=== PATIENT | male | born 1970 | race Caucasian/White ===

== ENCOUNTER → 2018-02-25 13:30 | Outpatient (CLI) | payer OTHER, SELFPAY ==
--- NOTE | 2018-02-25 13:34 | CT_ITS ---
STUDY: CT ABDOMEN WITH CONTRAST REASON FOR EXAM: Male, 47 years old. Incisional hernia from laparoscopic cholecystectomy, intermittent pain RADIATION DOSAGE (If Supplied By Facility): CTDIvol = ( 22.82 ) mGy, DLP = ( 934.68 ) mGycm TECHNIQUE: Transaxial images were obtained with oral contrast only. Sagittal and coronal images were reconstructed. Individualized dose optimization techniques were used for this CT. COMPARISON: None. FINDINGS: The visualized lung bases are unremarkable. The visualized portions of the heart are within normal limits. Normal liver. There are surgical clips in the gallbladder fossa consistent with a prior cholecystectomy. Normal spleen. Normal pancreas. Normal bilateral adrenal glands. Normal right kidney. Normal left kidney. Normal visualized stomach. Normal small intestine. Normal colon. There is non-visualization of the appendix. Normal abdominal aorta. Normal inferior vena cava. Normal retroperitoneum. There is a small umbilical hernia containing fat. There are degenerative changes of the visualized lower thoracic spine. No incisional hernia was identified. CT/Abdomen WITH ORAL Cont Only IMPRESSION: Status post cholecystectomy. Small fat containing umbilical hernia. Degenerative changes of the visualized lower thoracic spine. No incisional hernia was identified. Electronically Signed: Jerrell Gavin MD at 22:52 EDT , Service support ,
== END ==
PROVIDERS: Family Provider Family Medicine; PCP Family Medicine; Visit Provider Family Medicine
DX: K43.2 Incisional hernia without obstruction or gangrene (principal)
CPT/HCPCS: 74150

== ENCOUNTER → 2018-03-03 11:29 | Outpatient (CLI) | payer OTHER, SELFPAY ==
--- NOTE | 2018-03-03 11:34 | RAD_ITS ---
STUDY: X-RAY - THORACIC SPINE REASON FOR EXAM: Male, 47 years old. Mid back pain TECHNIQUE: 3 view(s) of the thoracic spine were obtained. COMPARISON: None. FINDINGS: Normal kyphosis of the thoracic spine. There is no substantial scoliosis. There is multilevel endplate spondylosis of the thoracic vertebrae. There is multilevel disc space narrowing of the thoracic spine. The soft tissue structures are unremarkable. RAD/Thoracic Spine 3 Views IMPRESSION: Degenerative changes without acute findings Electronically Signed: Eulogio Craft DO at 13:07 EDT Tel , Service support ,
--- NOTE | 2018-03-03 11:34 | RAD_ITS ---
STUDY: X-RAY - LUMBAR SPINE REASON FOR EXAM: Male, 47 years old. Low back pain with degenerative disc disease TECHNIQUE: 5 view(s) of the lumbar spine were obtained. COMPARISON: None FINDINGS: Normal lumbar lordosis. There is no substantial scoliosis. There is a normal alignment of the vertebrae. Normal vertebral bodies and endplates. Normal disc space heights. Mild multilevel facet degenerative change. The soft tissue structures are unremarkable. RAD/L/S Spine Min 4 Views IMPRESSION: Mild multilevel facet degenerative change Electronically Signed: Eulogio Craft DO at 13:06 EDT Tel , Service support ,
[2018-03-03 14:24] LABS: Erythrocyte Sedimentation Rate 5 mm/hr (0-15)
[2018-03-03 14:37] LABS: CRP 8.01 mg/L (0.0-3.0); Rheumatoid Factor < 10.0 IU/mL (<15)
[2018-03-05 11:06] LABS: ANTINUCLEAR ANTIBODIES DIRECT Negative (Negative)
== END ==
LOC: MTLAB 11:31
PROVIDERS: Family Provider Family Medicine; PCP Family Medicine; Visit Provider Family Medicine
DX: M51.36 Other intervertebral disc degeneration, lumbar region (principal)
CPT/HCPCS: 36415; 72072; 72110; 85652; 86038; 86140; 86431

== ENCOUNTER → 2018-03-21 12:27 | Outpatient (CLI) | payer OTHER, SELFPAY ==
[2018-03-21 15:44] LABS: Absolute Lymphocyte Count 1.57 X10^3/ul (0.83-4.51); Absolute Neutrophil Count 5.6 X10^3/uL (2.0-7.7); Basophil# 0.01 X10^3/uL; Basophil% 0.1 % (0-1); Eosinophil# 0.07 X10^3/uL; Eosinophils% 0.9 % (0-5); Hematocrit 43.9 % (40-54); Hemoglobin 15.2 g/dl (13.0-16.5); Lymphocyte # 1.57 X10^3/ul (4.0); Lymphocyte % 19.8 % (19-41); Mean Corp Hgb Conc 34.6 g/gl (32-36); Mean Corpuscular Hgb 29.2 pg (27.0-32.0); Mean Corpuscular Volume 84.4 fL (80-94); Mean Platelet Vol. 9.3 fl (6.2-12.0); Monocyte# 0.62 X10^3/uL; Monocyte% 7.8 % (0-10); Neutrophil # 5.64 X10^3/uL (2.7-7.7); Neutrophil % 71.1 % (47-70); Platelet Count 231 K/mm3 (150-450); RBC Distribution Width CV 12.6 % (11.6-14.6); RBC Distribution Width SD 38.5 fl (35.1-43.9); White Blood Count 7.9 K/mm3 (4.4-11.0)
[2018-03-21 16:07] LABS: POSITIVE COUNT NO; POSITIVE DIFFERENTIAL NO; POSITIVE MORPHOLOGY NO
[2018-03-22 09:43] LABS: H. Pylori Antibody (IgG) 0.21 (0.00-0.79)
== END ==
LOC: MTLAB 12:27
PROVIDERS: Family Provider Family Medicine; PCP Family Medicine; Visit Provider Family Medicine
DX: K30 Functional dyspepsia (principal)
CPT/HCPCS: 36415; 85025; 86677

== ENCOUNTER 2018-04-19 08:10 | Day surgery (SDC) | payer OTHER, SELFPAY ==
[2018-04-19] VITALS (7 sets, daily range): BP systolic 111–143; BP diastolic 71–95; PULSE 67–78; RESP 16–18; TEMP 36.4–36.8; O2SAT 96–99; BMI 31.8
--- NOTE | 2018-04-19 | IMM_PTH ---
PATIENT: JEFFREY BALL LOC: EN U#:[id number] AGE/SX: 47/M ROOM: RE04/19/[address]: Dr. Rommel Ogden MD : 1970 BED: DIS: 04/19/2018 SPEC #: [id number] RECD: 04/20/18 12:45 STATUS: WALI PIA #: [id number] ELIZABETH: 04/19/18 00:[address]: Rommel Ogden DEPT: IMMUNOHISTOCHEMISTRY RECD BY: Bernice Villavicencio ENTERED: 04/20/18 12:45 SP TYPE: IMMUNO OTHR DR: Dr. Lior Green MD Tissues: Stomach, NOS Procedures: H Pylori (initial) PHYSICIAN & INSTITUTION [place] [address] SPECIMEN INFORMATION: Tissue Source: Antral biopsy Clinical Info: LUQ pain, GERD Specimen Number: [id number] CPT code: 76937 METHODOLOGY: Deparaffinized sections of prefer/formalin-fixed tissue or PAP/DQ stained slides are incubated with monoclonal/polyclonal antibodies/oligonucleotide probes. Localization is made via biotin free immunoperoxidase method. Appropriate controls are performed and reacted as expected. Results on target cell population are indicated in the following table: RESULTS: ANTIBODY / CLONE RESULT H Pylori (polyclonal) negative These tests were developed and their performance characteristics determined by [facility]. They may not have been cleared or approved by the U.S. Food and Drug Administration. The FDA has determined that such clearance or approval is not necessary. INTERPRETATION: Antral biopsy: Negative for Helicobacter pylori organisms. ILIANA:allyn 04/21/18
--- NOTE | 2018-04-19 | EGD_PTH ---
PATIENT: JEFFREY BALL LOC: EN U#:[id number] AGE/SX: 47/M ROOM: RE04/19/[address]: Dr. Rommel Ogden MD : 1970 BED: DIS: 04/19/2018 SPEC #: [id number] RECD: 04/19/18 13:16 STATUS: WALI PIA #: [id number] ELIZABETH: 04/19/18 00:[address]: Rommel Ogden DEPT: SURGICAL PATHOLOGY RECD BY: Ranjit Kenyon ENTERED: 04/19/18 13:27 SP TYPE: EGD BIOPSY OT DR: Dr. Lior Green MD Tissues: Gastric mucous membrane Procedures: Surgery Specimen Level IV HEADER OPERATION: EGD PRE-OP DIAGNOSIS: LUQ pain, GERD TISSUE SUBMITTED: Antral biopsy for H. pylori and path MICROSCOPIC DIAGNOSIS Antral biopsy: Mild gastritis. SJ:allyn 04/20/18 COMMENT The results of immunohistochemistry for Helicobacter pylori will be reported separately ([id number]). MICROSCOPIC DESCRIPTION Slides are reviewed. The specimen shows fragments of gastric mucosa with chronic inflammatory cell infiltrates in the lamina propria consisting of lymphocytes and plasma cells, consistent with mild chronic gastritis. GROSS DESCRIPTION Received in fixative is one container labeled with the patient's name and designated antral biopsy. The specimen consists of two irregular fragments of light avalos soft tissue that in aggregate measure 0.5 x 0.2 x 0.1 cm. The specimen is totally submitted in one cassette. / SJ:rg 04/19/18 TC:3 CPT: 68254
--- NOTE | 2018-04-19 09:31 | OP.PCM_ITS ---
Problem List (1) GERD (gastroesophageal reflux disease) Status: Acute Qualifiers: Esophagitis presence: esophagitis presence not specified Qualified Code(s) : K21.9 - Gastro-esophageal reflux disease without esophagitis (2) LUQ pain Status: Acute Report of Operation Date of Procedure: 04/19/18 Pre-Operative Diagnosis: Left upper quadrant pain and GERD despite PPI therapy Post-Operative Diagnosis: 1. Gastritis. 2. Small hiatal hernia Surgery/Procedure Performed:: EGD with biopsy Specimen's removed: Antrum biopsy Description of Procedure: The major risks and benefits associated with the procedure were explained to the patient in detail. The patient verbalized understanding and agreement with the same. The patient was then placed in the left lateral decubitus position. IV sedation was started by anesthesia. The endoscope was then advanced under direct visualization over the tongue, into the esophagus , stomach and duodenum. It was slowly withdrawn and the mucosa was carefully evaluated. Duodenal mucosal abnormalities were not visualized. Antegrade and retrograde views of the stomach were normal and did not reveal ulceration. Patient did have a small hiatal hernia. Gastric folds were normal except for some gastritis of the antrum.. A biopsy of the antrum was performed with cold forceps. The scope was then withdrawn through the GE junction and careful examination did not demonstrate any mucosal abnormalities. No evidence of Chambers's esophagus was apparent. Careful examination of the remainder of the esophagus was normal. The scope was then withdrawn from the patient and the procedure terminated. It was well tolerated and there were no immediate complications. Recommendations: I recommended the patient try a different PPI if insurance will allow. If his H. pylori comes back negative I will check a serology H pylori to rule that out.
== END 2018-04-19 10:16 | disposition home or self-care (01) ==
LOC: EN 08:11 → AC 08:11
PROVIDERS: Family Provider Family Medicine; PCP Family Medicine; Visit Provider Surgery
PROC: 0DJ08ZZ Inspection of Upper Intestinal Tract, Via Natural or Artificial Opening Endoscopic (ICD-10-PCS; CPT 43235; principal; 2018-04-19 09:10)
DX: K29.70 Gastritis, unspecified, without bleeding (principal); K44.9 Diaphragmatic hernia without obstruction or gangrene; K21.9 Gastro-esophageal reflux disease without esophagitis; R10.12 Left upper quadrant pain
CPT/HCPCS: 43239; 88305; 88342; J7120

== ENCOUNTER → 2019-12-07 09:06 | Outpatient (CLI) | payer OTHER, SELFPAY ==
--- NOTE | 2019-12-07 09:07 | RAD_ITS ---
STUDY: X-RAY - RIGHT SHOULDER REASON FOR EXAM: Increasing right shoulder pain, injury 2 years ago. TECHNIQUE: 4 view(s) of the shoulder. COMPARISON: None. FINDINGS: There is mild joint space narrowing at the superior glenohumeral articulation. There is no substantial acromioclavicular arthrosis. Normal acromion. Normal humeral head and visualized proximal humerus. There is a small focus of calcific tendinitis. Normal visualized pulmonary apex. RAD/Shoulder min 2 Views IMPRESSION: Mild glenohumeral arthrosis. Small focus of calcific tendinitis. Electronically Signed: Brayan Lopez MD at 10:42 EST Tel , Service support ,
== END ==
PROVIDERS: PCP Family Medicine; Referring Provider Orthopaedic Surgery; Visit Provider Orthopaedic Surgery
DX: M25.511 Pain in right shoulder (principal)
CPT/HCPCS: 73030

== ENCOUNTER → 2022-11-20 | Outpatient (CLI) | payer OTHER, SELFPAY ==
--- NOTE | 2022-11-20 10:30 | RAD_ITS ---
INDICATION: GROIN PAIN EXAMINATION/TECHNIQUE: X-RAY - XR Pelvis 1 or 2 Views COMPARISON: None. FINDINGS: PELVIC BONES: No displaced fracture, destructive or sclerotic lesions. Note that overlapping bowel shadows may however obscure fine detail. Sacroiliac joints are unremarkable. No widening of the pubic symphysis. HIPS: The articular structures are unremarkable. No displaced fracture seen in this frontal view. SOFT TISSUES: No soft tissue swelling or gas. RAD/Pelvis 1 or 2 Views IMPRESSION: No evidence of displaced pelvic or hip fracture. Electronically Signed: Lior Casiano MD at 16:49 EST ,
[2022-11-20 12:08] LABS: Erythrocyte Sedimentation Rate 11 mm/hr (0-20)
[2022-11-20 12:09] LABS: Absolute Lymphocyte Count 1.76 X10^3/uL (0.83-4.51); Basophil# 0.03 X10^3/uL; Basophil% 0.5 % (0-1); Eosinophils% 1.5 % (0-5); Hematocrit 47.3 % (40-54); Hemoglobin 15.9 g/dL (13.0-16.5); Lymphocyte # 1.76 X10^3/ul (0.83-4.51); Mean Corp Hgb Conc 33.6 g/dL (32-36); Mean Corpuscular Hgb 28.6 pg (27.0-32.0); Mean Corpuscular Volume 85.2 fL (80-94); Mean Platelet Vol. 8.9 fl (6.2-12.0); Monocyte# 0.65 X10^3/uL; NRBC Flagged by Analyzer 0 % (0-5); Neutrophil # 3.97 X10^3/uL (2.7-7.7); Neutrophil % 60.7 % (47-70); Platelet Count 236 K/mm3 (150-450); RBC Distribution Width CV 11.9 % (11.6-14.6); RBC Distribution Width SD 36.6 fl (35.1-43.9); Red Blood Count 5.55 M/mm3 (4.6-6.2); White Blood Count 6.5 K/mm3 (4.4-11.0)
== END | disposition home or self-care (01) ==
LOC: MTLAB 10:28
PROVIDERS: PCP Family Medicine; Referring Provider Family Medicine; Visit Provider Family Medicine
DX: R10.30 Lower abdominal pain, unspecified (principal)
CPT/HCPCS: 36415; 72170; 85025; 85652

== ENCOUNTER → 2023-11-17 | Outpatient (CLI) | payer OTHER, SELFPAY ==
--- NOTE | 2023-11-17 14:53 | CT_ITS ---
INDICATION: abdominal pain, epigastric region EXAMINATION: CT ABDOMEN WITH IV CONTRAST CT Abdomen W/ Contrast Injection TECHNIQUE: Helically acquired images were obtained of the abdomen following IV contrast. A radiation dose optimization technique was used for this scan. IV Contrast dosage and agent: 93 cc of Isovue-370 Oral contrast: None. RADIATION DOSAGE (If Supplied By Facility): CTDIvol = ( 16.92 ) mGy, DLP = ( 1003.97 ) mGycm COMPARISON: Prior study dated: 1717 FINDINGS: LOWER CHEST: Lung bases are clear. No cardiomegaly or pericardial effusion. LIVER: Mild hepatic steatosis. No focal mass. GALLBLADDER AND BILIARY TREE: Status post cholecystectomy. No intra- or extrahepatic biliary ductal dilation. PANCREAS: No focal cystic or solid mass. SPLEEN: Normal size without focal cystic or solid mass. ADRENAL GLANDS: No nodules. KIDNEYS AND URETERS: Normal renal size and position. No hydronephrosis. PERITONEUM: No ascites or free air. No other fluid collection. BOWEL: Surgical clips right lower quadrant presumably from previous appendectomy. No stomach or bowel distension. No focal inflammatory change. LYMPH NODES: No enlarged mesenteric or retroperitoneal lymph nodes. VESSELS: Aorta is non-dilated. ABDOMINAL WALL: Small umbilical hernia containing fat unchanged. BONES: No lytic or blastic abnormality. CT/Abdomen WITH IV Contrast IMPRESSION: 1. No focal acute inflammatory process. 2. Status post cholecystectomy and appendectomy. 3. Small umbilical hernia containing fat 4. Mild hepatic steatosis. Electronically Signed: Eric Yuan MD at 10:38 EST ,
== END | disposition home or self-care (01) ==
LOC: CT 14:48
PROVIDERS: PCP Family Medicine; Referring Provider Family Medicine; Visit Provider Family Medicine
DX: K43.2 Incisional hernia without obstruction or gangrene (principal)
CPT/HCPCS: 74160; Q9967

== ENCOUNTER → 2024-01-04 | Outpatient (CLI) | payer OTHER, SELFPAY ==
--- NOTE | 2024-01-04 12:57 | RAD_ITS ---
INDICATION: cough, SOB. ? Hiatal hernia EXAMINATION/TECHNIQUE: X-RAY - XR Chest 2 Views COMPARISON: No relevant prior comparison study available FINDINGS: LINES/DEVICES: None. LUNGS: No consolidation, edema or effusion. No pneumothorax. MEDIASTINUM AND CARDIOVASCULAR STRUCTURES: Cardiac silhouette not enlarged. Central airways and mediastinal contour are unremarkable. BONES AND SOFT TISSUES: Mild degenerative changes in the thoracic spine. No definite hiatal hernia is seen. RAD/Chest PA and Lateral IMPRESSION: No radiographic evidence of acute cardiopulmonary disease. Electronically Signed: Eric Yuan MD at 15:09 EST ,
== END | disposition home or self-care (01) ==
LOC: MTRAD 12:38
PROVIDERS: PCP Family Medicine; Referring Provider Family Medicine; Visit Provider Family Medicine
DX: R06.02 Shortness of breath (principal)
CPT/HCPCS: 71046

== ENCOUNTER 2024-01-11 07:33 | Day surgery (SDC) | payer OTHER, SELFPAY ==
[2024-01-11] MEDS: Lactated Ringers 1,000 ML 15 ML IV (07:53)
[2024-01-11 07:54] VITALS: BP 140/87; PULSE 81; RESP 18; TEMP 36.3; O2SAT 100; BMI 33.7
--- NOTE | 2024-01-11 08:07 | HP.PCM_ITS ---
History and Physical Date of Admission: 01/11/24 Intake Intake Visit Reasons: DISCUSS GERD / EGD Chief Complaint: discuss gerd/egd Is patient in pain?: No Allergies procaine [From Novocain] Allergy (Intermediate, Verified 12/20/23 14:00) Swelling Medications acetaminophen 325 mg capsule (Tylenol) 650 mg PO Q4H PRN pain 12/14/23 [History Confirmed 12/20/23] pantoprazole 20 mg tablet,delayed release 20 mg PO DAILY #60 tabs 12/20/23 [Rx Confirmed 12/20/23] sucralfate 1 gram tablet (Carafate) 1 g PO QACHS #60 tabs 12/20/23 [Rx Confirmed 12/20/23] PFSH Medical History Back pain Chewing tobacco dependence GERD (gastroesophageal reflux disease) History of hiatal hernia History of stress test Wears glasses Surgical History History of esophagogastroduodenoscopy (EGD) S/P appendectomy S/P laparoscopic cholecystectomy Family History Mother Kidney disease Social History Smoking Status: Current some day smoker tobacco type: smokeless tobacco alcohol intake: never HPI HPI HPI: Patient is back to discuss his heartburn. He reports that his heartburn has gotten much worse and he would like this evaluated. He said his heartburn has gotten worse and he is feeling a lot of pain and burning. ROS General General: No weight change, appetite, fatigue, colon cancer, breast cancer or weakness HEENT HEENT: No difficulty swallowing, eye injury, eye surgery, swollen glands or hoarseness Endo Endocrine: No thyroid disease, diabetes mellitus, thyroid cancer, Hair loss, heat intolerance or cold intolerance Skin Skin: No rash or changing moles Musc Musculoskeletal: No back problems, arthritis, rheumatoid arthritis, gout or joint pain Cardio Cardiovascular: No murmur, pacemaker, heart disease, atrial fibrillation, high blood pressure, heart attack, heart stent, palpitations, shortness of breat with exertion or chest pain Psych Psychiatric: No depression, anxiety or hearing voices Resp Respiratory: No shortness of breath, No sleep apnea, No cough, No COPD, No asthma, No emphysema and No wheezing Gastro Gastrointestinal: Yes abdominal pain, No nausea or vomiting, No diarrhea, No constipation, No blood in stool, Yes acid reflux, No hemorrhoids, No ulcers, No gallbladder problem and No black,tarry stools Jeison Hematologic: No blood thinners, No blood disorders, No bleeding, No anemia and No blood clots Neuro Neurologic: No system reviewed and no additional complaints, except as documented, No as per HPI, No abnormal gait, No abnormal hearing, No abnormal movements, No abnormal speech, No behavioral changes, No burning sensations, No confusion, No convulsions, No disequilibrium, No dizziness, No localized weakness, No frequent falls, No headache(s), No lack of coordination, No loss of vision, No memory loss, No numbness, No other visual disturbances, No radicular pain, No restless legs, No sensory deficit, No syncope, No tingling, No tremor(s), No weakness and No other Exam Const General: cooperative Orientation: alert and oriented x3 HENMT Head: normal to inspection Neck Neck: normal visual inspection and full ROM Chest Chest palpation & inspection: normal inspection of the chest Resp Effort & Inspection: normal respiratory effort Auscultation: clear to auscultation bilaterally Cardio Rate: regular rate Rhythm: regular rhythm GI Inspection: non-distended Palpation: soft and nontender Skin General: no rashes or lesions noted Neuro General: patient alert and patient oriented x3 Extrem General: full ROM Psych Appearance: grossly normal Mental Status: mental status grossly normal Assessment and Plan Assessment and Plan (1) Ventral incisional hernia: Status: Acute Plan: I am going to hold off repairing the hernia until after we evaluate his GERD. (2) GERD (gastroesophageal reflux disease): Status: Acute Qualifiers: Esophagitis presence: esophagitis presence not specified Qualified Code(s): K21.9 - Gastro-esophageal reflux disease without esophagitis Plan: I will evaluate his GERD by performing EGD. I will also start him on a PPI and Carafate. I explained endoscopy in detail to the patient. I explained the risks including but not limited to stroke or heart attack with anesthesia, perforation of the GI tract, bleeding, infection. I explained that any of these could necessitate further emergency surgery. The patient understands and all questions were answered sufficiently. The patient wishes to proceed with procedure. Rommel Ogden MD Pager: [facility] [address] [place] [address], [address] [place] [address] Office: I have examined the patient and the H&P has been reviewed. There are no clinical changes since date of exam.
--- NOTE | 2024-01-11 08:30 | IMM_PTH ---
PATHOLOGY RESULTS PATIENT: JEFFREY BALL LOC: EN U#:[id number] AGE/SX: 53/M ROOM: RE01/11/[address]: Dr. Rommel Ogden MD : 1970 BED: DIS: 01/11/2024 SPEC #: [id number] RECD: 01/11/24 16:11 STATUS: WALI PAI #: [id number] ELIZABETH: 01/11/24 08:[address]: Rommel Ogden DEPT: IMMUNOHISTOCHEMISTRY RECD BY: Reyes Church ENTERED: 01/11/24 16:12 SP TYPE: IMMUNO OTHR DR: Dr. Lior Green MD Tissues: Stomach, NOS Procedures: H Pylori (initial) PHYSICIAN & INSTITUTION [place] [address] SPECIMEN INFORMATION: Tissue Source: Gastric Antrum Clinical Info: Ventral incisional hernia, GERD Specimen Number: [id number] CPT code: 99553 METHODOLOGY: Deparaffinized sections of prefer/formalin-fixed tissue or PAP/DQ stained slides are incubated with monoclonal/polyclonal antibodies/oligonucleotide probes. Localization is made via biotin free immunoperoxidase method. Appropriate controls are performed and reacted as expected. Results on target cell population are indicated in the following table: RESULTS: ANTIBODY / CLONE RESULT H Pylori (polyclonal) negative These tests were developed and their performance characteristics determined by [facility]. They may not have been cleared or approved by the U.S. Food and Drug Administration. The FDA has determined that such clearance or approval is not necessary. The above immunohistochemical/dualISH markers are ordered and reviewed by the Pathologist. INTERPRETATION: Gastric Antrum, biopsy; Negative for Helicobacter pylori organisms.
--- NOTE | 2024-01-11 08:30 | EGD_PTH ---
PATHOLOGY RESULTS PATIENT: JEFFREY BALL LOC: EN U#:[id number] AGE/SX: 53/M ROOM: RE01/11/[address]: Dr. Rommel Ogden MD : 1970 BED: DIS: 01/11/2024 SPEC #: [id number] RECD: 01/11/24 11:04 STATUS: WALI PIA #: [id number] ELIZBAETH: 01/11/24 08:[address]: Rommel Ogden DEPT: SURGICAL PATHOLOGY RECD BY: Mariia Rogers ENTERED: 01/11/24 11:04 SP TYPE: EGD BIOPSY OT DR: Dr. Lior Green MD Tissues: Gastric mucous membrane Procedures: Surgery Specimen Level IV HEADER OPERATION: EGD biopsy PRE-OP DIAGNOSIS: Ventral incisional hernia, GERD TISSUE SUBMITTED: Gastric antrum biopsy MICROSCOPIC DIAGNOSIS Gastric antrum biopsy; Chronic gastritis. See comment. ZAYDA/ 01/12/24 COMMENT The results of immunohistochemistry for Helicobacter pylori will be reported separately ([id number]). MICROSCOPIC DESCRIPTION Slides are reviewed. GROSS DESCRIPTION Received in fixative is one container labeled with the patient's name and designated gastric antrum. The specimen consists of one irregular fragment of light avalos soft tissue that measures 0.4 x 0.3 x 0.1 cm. The specimen is totally submitted in one cassette. / SJ:allyn 01/11/2024 TC:3 CPT: 27705
[2024-01-11 09:05] VITALS: BP 120/71; BP 140/87; PULSE 74; RESP 16; TEMP 36.3; O2SAT 99
--- NOTE | 2024-01-11 09:08 | OP.EGD_ITS ---
Patient Name: Alexis Rush Procedure Date: 01/11/2024 8:46 AM Date of : 1970 Age: 53 Procedure: Upper GI endoscopy Indications: Heartburn, Gastro-esophageal reflux disease Providers: Rommel Ogden MD Medicines: Propofol per Anesthesia Patient Profile: This is a 53 year old male. Refer to note in patient chart for documentation of history and physical. Complications: No immediate complications. Estimated blood loss: Minimal. Procedure: Pre-Anesthesia Assessment: - Prior to the procedure, a History and Physical was performed, and patient medications and allergies were reviewed. The patient's tolerance of previous anesthesia was also reviewed. The risks and benefits of the procedure and the sedation options and risks were discussed with the patient. All questions were answered, and informed consent was obtained. Prior Anticoagulants: The patient has taken no anticoagulant or antiplatelet agents. After reviewing the risks and benefits, the patient was deemed in satisfactory condition to undergo the procedure. After obtaining informed consent, the endoscope was passed under direct vision. Throughout the procedure, the patient's blood pressure, pulse, and oxygen saturations were monitored continuously. The gastroscope was introduced through the mouth, and advanced to the fourth part of duodenum. The upper GI endoscopy was accomplished without difficulty. The patient tolerated the procedure well. Scope In: 8:56:44 AM Scope Out: 8:59:30 AM Total Procedure Duration Time 0 hours 2 minutes 46 seconds Findings: The esophagus was normal. The stomach was normal. The examined duodenum was normal. Biopsies were taken with a cold forceps in the gastric antrum for Helicobacter pylori testing. Impression: - Normal esophagus. - Normal stomach. - Normal examined duodenum. - Biopsies were taken with a cold forceps for Helicobacter pylori testing. Recommendation: - Discharge patient to home. - Resume previous diet. - Continue present medications. Procedure Code(s): --- Professional --- 56596, Esophagogastroduodenoscopy, flexible, transoral; with biopsy, single or multiple Diagnosis Code(s): --- Professional --- R12, Heartburn K21.9, Gastro-esophageal reflux disease without esophagitis CPT copyright 2021 [employer]. All rights reserved. The codes documented in this report are preliminary and upon monogram and letter paster review may be revised to meet current compliance requirements. Rommel Ogden MD 01/11/2024 9:08:20 AM This report has been signed electronically. Number of Addenda: 0 Note Initiated On: 01/11/2024 8:46 AM
--- NOTE | 2024-01-11 09:09 | OP.CCLET_ITS ---
01/11/2024 Neftali Green [address] [place] [address] Re : Upper GI endoscopy procedure for Alexis Rush Dear Dr. Green This procedure was performed on Thursday, January 11, 2024. My impressions and recommendations are as follows: Impressions : - Normal esophagus. - Normal stomach. - Normal examined duodenum. - Biopsies were taken with a cold forceps for Helicobacter pylori testing. Recommendations : - Discharge patient to home. - Resume previous diet. - Continue present medications. My findings are described in the full procedure note, which is enclosed. If I can be of further assistance, please feel free to contact me at Doctor phone number(s): , Work: . Sincerely, Rommel Ogden MD 01/11/2024 9:08:20 AM This report has been signed electronically.
[2024-01-11 09:10] VITALS: BP 113/77; BP 140/87; PULSE 73; RESP 16; O2SAT 95
[2024-01-11 09:15] VITALS: BP 117/75; BP 140/87; PULSE 71; RESP 16; TEMP 37; O2SAT 97
[2024-01-11 09:27] VITALS: BP 140/87
== END 2024-01-11 09:30 | disposition home or self-care (01) ==
LOC: EN 07:33 → AC 07:34
PROVIDERS: PCP Family Medicine; Referring Provider Family Medicine; Visit Provider Surgery
PROC: 0DJ08ZZ Inspection of Upper Intestinal Tract, Via Natural or Artificial Opening Endoscopic (ICD-10-PCS; CPT 43235; principal; 2024-01-11 08:25)
DX: K21.9 Gastro-esophageal reflux disease without esophagitis (principal); K43.2 Incisional hernia without obstruction or gangrene; F17.210 Nicotine dependence, cigarettes, uncomplicated; Z90.49 Acquired absence of other specified parts of digestive tract; R12 Heartburn; K29.50 Unspecified chronic gastritis without bleeding
CPT/HCPCS: 43239; 88305; 88342; J7120; J2405

== ENCOUNTER → 2024-07-19 | Outpatient (CLI) | payer OTHER, SELFPAY ==
--- NOTE | 2024-07-19 10:25 | RAD_ITS ---
STUDY: X-RAY - ABDOMEN/PELVIS REASON FOR EXAM: Male, 54 years old. Abdominal pain. TECHNIQUE: AP supine and upright views of the abdomen and pelvis on 4 images. COMPARISON: CT of the abdomen and pelvis dated November 17, 2023 FINDINGS: Normal visualized lung bases. Normal bowel gas pattern with air seen to the rectum. Moderate to marked amount of feces in the colon. Intra-abdominal outline is difficult to see due to overlying feces and bowel gas. Cholecystectomy clips. Normal visualized osseous structures. RAD/Abd Inc Decub and/or Erect IMPRESSION: Moderate to marked amount of feces in the colon. No acute finding. Electronically Signed: Blayne Brian MD at 11:17 EDT ,
[2024-07-19 12:14] LABS: Erythrocyte Sedimentation Rate 6 mm/hr (0-20)
[2024-07-19 12:18] LABS: Absolute Neutrophil Count 4.8 X10^3/uL (2.0-7.7); Basophil# 0.04 X10^3/uL; Basophil% 0.5 % (0-1); Eosinophils% 1.4 % (0-5); Hematocrit 43.8 % (40-54); Hemoglobin 14.9 g/dL (13.0-16.5); Lymphocyte % 23.2 % (19-41); Mean Corpuscular Volume 85.2 fL (80-94); Mean Platelet Vol. 9.2 fl (6.2-12.0); Monocyte# 0.69 X10^3/uL; Monocyte% 9.4 % (0-10); NRBC Flagged by Analyzer 0 % (0-5); Neutrophil # 4.78 X10^3/uL (2.7-7.7); Neutrophil % 65.2 % (47-70); Platelet Count 219 K/mm3 (150-450); RBC Distribution Width CV 12.4 % (11.6-14.6); RBC Distribution Width SD 38.5 fl (35.1-43.9); Red Blood Count 5.14 M/mm3 (4.6-6.2); White Blood Count 7.3 K/mm3 (4.4-11.0)
[2024-07-19 12:53] LABS: ALB/GLOB Ratio 0.9 RATIO (0.9-2.4); AST(SGOT) 20 U/L (15-37); Alanine Aminotransfer ALT/SGPT 34 U/L (16-61); Albumin, Serum 3.4 g/dL (3.2-5.0); Alkaline Phosphatase 131 U/L (45-117); Anion Gap 4 (5-15); BUN 15 mg/dL (7-18); BUN/Creat Ratio 17.5 RATIO (10-20); Calcium,Total 9.6 mg/dL (8.5-10.1); Chloride 106 mmol/L (98-107); Creatinine, Serum 0.86 mg/dL (0.70-1.30); EST Glomerular Filtration Rate 99 mL/min (>60); Est Glom Filt Rate - Afr Amer 120 mL/min (>60); Globulin 3.9 g/dL (2.2-4.2); Glucose 108 mg/dL (74-106); Potassium 4.3 mmol/L (3.5-5.1); Protein, Total 7.3 g/dL (6.4-8.2); Sodium Level 137 mmol/L (136-145)
== END | disposition home or self-care (01) ==
LOC: MTLAB 10:21
PROVIDERS: PCP Family Medicine; Referring Provider Family Medicine; Visit Provider Family Medicine
DX: R10.9 Unspecified abdominal pain (principal)
CPT/HCPCS: 36415; 74019; 80053; 85025; 85652